=== PATIENT | female | born 1975 | race Hispanic/Latino ===

== ENCOUNTER 2016-08-26 23:07 | Emergency (ER) | payer OTHER ==
[~2016-08-26] VITALS: Ht 170.2 cm; Wt 104.3 kg
[~2016-08-26 23:07] MED LIST: AMBIEN12.5 MG PO; AMITRIPTYLINE H50 MG PO; AMITRIPTYLINE100 M2 PO; AMLODIPINE BESYL5 M1 PO; BYSTOLIC20 MG PO; LINACLOTIDE PO; LINZESS290 MCG PO; METHOTREXA25 MG/1 M2 SC; METHOTREXATE2.5 M1 PO; NEXIUM20 MG PO; OMEPRAZOLE20 M2 PO; OXYCODONE HCL10 M2 PO; OXYCODONE HCL30 MG PO; OXYCODONE HYDRO30 MG PO; POLYETHYLENE G255 GM PO; RASUVO SC; SAVELLA50 M1 PO; VOLTAREN100 GM TOP
--- NOTE | 2016-08-26 23:44 | ED HAND/WRIST INJURY COMPLAINT ---
History of Present Illness General Chief Complaint: General Adult Stated Complaint: HANDS AND JOINT PAIN/ LUMP ON VAGINA Source: patient, old records Exam Limitations: no limitations Vital Signs & Intake/Output Vital Signs & Intake/Output Vital Signs Date Time Temp Pulse Resp B/P Pulse O2 O2 Flow FiO2 Ox Delivery Rate 08/26 2317 98.3 98 18 178/105 97 Room Air ED Intake and Output 08/27 0000 08/26 1200 Intake Total Output Total Balance Patient 230 lb Weight Allergies Coded Allergies: NO KNOWN ALLERGIES (03/17/16) Reconcile Medications Amitriptyline HCl 100 MG TABLET 1 TAB PO QHS HEADACHES (Reported) Amlodipine Besylate 5 MG TABLET 1 TAB PO DAILY REYNAUDS (Reported) Diclofenac Sodium (Voltaren) 1 % GEL..GRAM. 1 GM TOP 4 TIMES/DAY JOINTS ( Reported) apply to affected area(s) Linaclotide (Linzess) 290 MCG CAPSULE 1 TAB PO DAILY CONSTIPATION (Reported) Methotrexate/Pf (Rasuvo 15 MG/0.3 Ml Autoinj) 15 MG/0.3 ML AUTO.INJCT 15 MG SC QTHURS RA (Reported) Milnacipran (Savella) 50 MG TABLET 1 TAB PO BID FIBROMYALGIA (Reported) Nebivolol Hydrochloride (Bystolic) 20 MG TAB 1 TAB PO DAILY BLOOD PRESSURE ( Reported) Omeprazole 20 MG CAPSULE.DR 1 CAP PO DAILY GI (Reported) Oxycodone HCl 10 MG TABLET 1 TAB PO 4XDAILY PAIN (Reported) Polyethylene Glycol 3350 17 GRAM/DOSE POWDER 17 GM PO DAILY GI (Reported) Zolpidem Tartrate (Ambien Cr) 12.5 MG TAB.MPHASE 1 TAB PO AT BEDTIME SLEEP ( Reported) Triage Note: RECEIVED 40 YO FEMALE WITH HX OF RA, C/O HANDS, JOINTS, ARMS AND BACK VERY PAINFUL X 3 DAYS. PT ALSO C/O LUMP ON VAGINAL AREA. SEEN MILLER HEAD ONE MONTH AGO, LUMP IS GETTING LARGER. Triage Nurses Notes Reviewed? yes Occurred: last week Duration: day(s): (3), constant Timing: recent history Injury Environment: home Severity: moderate Severity Numbers: 6 Pain/Injury Location: Bilateral: Hand. Method of Injury: unknown No Modifying Factors: none Associated Symptoms: swelling : No Patient currently breastfeeds: No HPI: 40-year-old female history of RA, fibromyalgia, raynauds presents emergency room complaining with 3 day history of bilateral upper extremity pain described as a soreness stiffness tightness intermittent swelling going on for the past 3 days. The patient denies any known specific injury or trauma. She is in pain management and takes oxycodone every 6 hours as needed her last dose roughly 4 hours ago she's been taking without improvement. Patient denies any rashes to her skin, she denies any lower extremity injury neck or back pain chest pain shortness of breath or abdominal pain. Patient is also complaining of a lump to her vaginal area which she's had for the past 1 month she states that is been getting larger. She states she was initially medical. 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 castro however states he cultures came back negative and the symptoms persist. She denies any vaginal bleeding or discharge otherwise. No rashes to her genitalia no history of similar episodes in the past Past History Travel History Traveled to [place] past 21 day No Medical History Any Pertinent Medical History? see below for history Neurological: NONE EENT: NONE Cardiovascular: hypertension Respiratory: NONE Gastrointestinal: NONE Hepatic: cholelithiasis Renal: NONE Musculoskeletal: fibromyalgia, rheumatoid arthritis Psychiatric: NONE Endocrine: NONE Blood Disorders: NONE Cancer(s): NONE MILLER HEAD/Reproductive: NONE Surgical History Surgical History: cholecystectomy Psychosocial History What is your primary language Belarusian Tobacco Use: Never used Family History Hx Contributory? No Review of Systems Review of Systems Constitutional: Reports: see HPI. All Other Systems: Reviewed and Negative Comments Review of systems: See HPI, All other systems negative. Constitutional, no chills no fever, no malaise HEENT: No visual changes no sore throat no congestion Cardiovascular: No chest pain , no palpitation Skin, no rashes, no change in skin resp: no dyspnea GI: No nausea no vomiting, no diarrhea, : No dysuria No hematuria, no frequency, no discharge Muscle skeletal: joint pain, joint swelling, no back pain, no neck pain, Neurologic: No numbness no headache Psych: No stress Heme/endocrine: No bruising no bleeding Immunology: No lymphadenopathy Physical Exam Physical Exam General Appearance: well developed/nourished, alert, awake Hand Left: normal inspection, normal range of motion Hand Right: normal inspection, normal range of motion Comments: Well-developed well-nourished person in no acute distress HEENT: Normal EENT exam; PERRL, EOMI, . HEAD is atraumatic. moist mucous membranes. Neck: Supple, normal range of motion Back: Nontender, Full range of motion Cardiovascular: Regular rate and rhythms no murmurs Respiratory: No respiratory distress. Patient speaking in full complete sentences. Breath sounds clear to auscultation bilaterally: NO W/R/R Abdomen: Soft, nontender nondistended Female : Normal external genitalia, Normal cervix, nontender. Noraml adnexa. No lesions/discharge or bleeding. Uterus normal in size. There is no rashes no abscess no induration or fluctuance Shoulder: Atraumatic/Stable. FROM . Elbow: Atraumatic/stable. FROM. No laxity Upper arm/Forearm: Atraumatic. Nontender. No edema, 5 out of 5 intelligence intern strength noted to bilateral upper extremities Hand/Wrist: Atraumatic/stable. Skin intact. FROM Pulses: Normal/equal radial pulses bilaterally. Brisk cap refill Lower Extremity: No edema, full range of motion of extremities, 5 out of 5 strength in bilateral lower extremities Neuro: Alert oriented x3, motor sensory normal,There were no obvious focal neurologic abnormalities. Skin: No appreciable rash on exposed skin, skin is warm and dry. Psych: Mood and affect is normal, memory and judgment is normal. Progress Differential Diagnosis: RA exacerbation fibromyalgia contusion fracture sprain, Bartholin's cyst, malignancy, herpes, candidiasis Plan of Care: Current Medications Sig/Suha Start time Last Medication Dose Stop Time Status Admin Morphine Sulfate 4 MG ONCE ONE 08/27 0100 UNVr (Morphine) 08/27 010 Hydromorphone HCl 1 MG ONCE ONE 08/26 2344 CAN (Dilaudid) 08/26 2346 pt medicated Dilaudid 1 mg IM I discussed with patient plan of care information is provided for plastics follow-up, advised return anytime sooner if any concerns prescription for lidocaine jelly provided they feel comfortable plan cleared for discharge ([facility]) Departure Departure Time of Disposition: 46 Disposition: HOME OR SELF CARE Condition: Stable Clinical Impression Primary Impression: Extremity pain Secondary Impressions: Fibromyalgia Referrals: ENRIQUE RICCI,DEO JOY MD,KALEB GALVIN MD,PETER (PCP/Family) Additional Instructions: 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 lidocaine jelly as discussed. this was sent to [facility] Continue taking your pain medication as prescribed. return at anytime sooner with any concerns Departure Forms: Customer Survey General Discharge Information Prescriptions: Current Visit Scripts Lidocaine HCl 5 ML TOP TID PRN PAIN #45 ML
[2016-08-27] MEDS ORDERED: LIDOCAINE HCL5 ML TOP (00:49)
[2016-08-27 01:07] VITALS: BP 155/74
== END 2016-08-27 01:11 ==
LOC: ERH 23:07
DX: M79.7 Fibromyalgia (principal); M79.601 Pain in right arm; M79.602 Pain in left arm
CPT/HCPCS: 96372

== ENCOUNTER 2017-10-25 23:20 | Emergency (ER) | payer OTHER ==
[~2017-10-25 23:20] MED LIST changes: +LIDOCAINE HCL5 ML TOP
[2017-10-26 01:14] LABS: ABSOLUTE BASOPHIL COUNT 0.1 /CUMM (0.0-0.2); ABSOLUTE EOSINOPHIL COUNT 0.5 /CUMM (0.0-0.7); ABSOLUTE GRANULOCYTE CT 5.6 /CUMM (1.4-6.5); ABSOLUTE MONOCYTE COUNT 0.7 /CUMM (0.10-0.60); BASOPHIL % 0.7 % (0.0-2.0); GRANULOCYTE % 56.6 % (42.2-75.2); HEMATOCRIT 37.9 % (37-47); MEAN CORPUSCULAR HGB 28.6 PG (27.0-31.0); MEAN CORPUSCULAR HGB CONC 32.9 G/DL (33.0-37.0); MEAN PLATELET VOLUME 9.7 FL (7.4-10.4); PLATELET COUNT 305 /CUMM (130-400); RBC DISTRIBUTION WIDTH 15.3 % (11.5-14.5); RED BLOOD CELL CT 4.35 /CUMM (4.20-5.40); WHITE BLOOD CELL COUNT 9.9 /CUMM (4.8-10.8)
--- NOTE | 2017-10-26 01:16 | ED GI/GU/ABDOMINAL COMPLAINT ---
History of Present Illness General Chief Complaint: Abdominal Pain/Flank Pain Stated Complaint: ABD PAIN X'S 1 1/2 WKS Source: patient, family, old records Exam Limitations: no limitations Vital Signs & Intake/Output Vital Signs & Intake/Output Vital Signs Date Time Temp Pulse Resp B/P B/P Pulse O2 O2 Flow FiO2 Mean Ox Delivery Rate 10/26 0010 97.7 94 18 177/98 97 Room Air Allergies Coded Allergies: No Known Allergies (10/26/17) Reconcile Medications Amitriptyline HCl 100 MG TABLET 1 TAB PO QHS HEADACHES (Reported) Amlodipine Besylate 5 MG TABLET 1 TAB PO DAILY REYNAUDS (Reported) Diclofenac Sodium (Voltaren) 1 % GEL..GRAM. 1 GM TOP 4 TIMES/DAY JOINTS ( Reported) apply to affected area(s) Lidocaine HCl 2 % JEL..ML. 5 ML TOP TID PRN PAIN Linaclotide (Linzess) 290 MCG CAPSULE 1 TAB PO DAILY CONSTIPATION (Reported) Methotrexate/Pf (Rasuvo 15 MG/0.3 Ml Autoinj) 15 MG/0.3 ML AUTO.INJCT 15 MG SC QTHURS RA (Reported) Milnacipran (Savella) 50 MG TABLET 1 TAB PO BID FIBROMYALGIA (Reported) Nebivolol Hydrochloride (Bystolic) 20 MG TAB 1 TAB PO DAILY BLOOD PRESSURE ( Reported) Omeprazole 20 MG CAPSULE.DR 1 CAP PO DAILY GI (Reported) Oxycodone HCl 10 MG TABLET 1 TAB PO 4XDAILY PAIN (Reported) Polyethylene Glycol 3350 17 GRAM/DOSE POWDER 17 GM PO DAILY GI (Reported) Zolpidem Tartrate (Ambien Cr) 12.5 MG TAB.MPHASE 1 TAB PO AT BEDTIME SLEEP ( Reported) Triage Note: TRIAGE: PATIENT TO ROOM 10 FOR TRIAGE, PATIENT REPORTING +STRAIN W/ URINATION AND BM W/ LOWER ABD PAIN "IN THE OVARIES" X 1WEEK. REPORTS WAS SEEN AT [facility] ON MONDAY AND DX W/ R OVARIAN CYST, TOLD TO F/U W/ PCP BUT COULDN'T GET APPT UNTIL 11/06/17. PATIENT REPORTS "I TAKE PAIN MEDS FOR FIBROMYALGIA AND RA AND EVEN THAT ISN'T HELPING." DENIES N/V/D. Triage Nurses Notes Reviewed? yes LMP (ages 10-50): unknown ? n Is pt currently ? No Onset: 2 weeks Duration: week(s):, constant, continues in ED Timing: recent history Quality/Severity: aching, sharpness, severe Location: right flank, right lower quadrant Radiation: back Activities at Onset: rest Prior Abdominal Problems: none Past Sexual History: Unobtainable at this time Modifying Factors: Worsens With: movement, palpation. Associated Symptoms: abdominal pain, dysuria, loss of appetite, nausea/vomiting HPI: 2 weeks prior to admission patient complains of constant right lower quadrant pain described as sharp severe radiating to her flank. She also complains of discomfort with voiding needing to strain. The pain is worse when lying on her right side palpation and movement. She was seen at [facility] and diagnosed with ovarian cyst and UTI prescribed Macrobid. She denies fever chills nausea vomiting diarrhea chest pain cough shortness breath headache rash bleeding. Past History Travel History Traveled to [place] past 21 day No Medical History Any Pertinent Medical History? see below for history Neurological: NONE EENT: NONE Cardiovascular: hypertension Respiratory: NONE Gastrointestinal: NONE Hepatic: cholelithiasis Renal: NONE Musculoskeletal: fibromyalgia, rheumatoid arthritis Psychiatric: NONE Endocrine: NONE Blood Disorders: NONE Cancer(s): NONE OCC MED PHYSICIAN/Reproductive: NONE Surgical History Surgical History: cholecystectomy Psychosocial History What is your primary language Portuguese Tobacco Use: Never used Family History Hx Contributory? No Review of Systems Review of Systems Constitutional: Reports: no symptoms. EENTM: Reports: no symptoms. Respiratory: Reports: no symptoms. Cardiovascular: Reports: no symptoms. GI: Reports: see HPI, abdominal pain. Genitourinary: Reports: see HPI, dysuria, hesitation, pain. Musculoskeletal: Reports: no symptoms. Skin: Reports: no symptoms. Neurological/Psychological: Reports: no symptoms. Hematologic/Endocrine: Reports: no symptoms. Immunologic/Allergic: Reports: no symptoms. All Other Systems: Reviewed and Negative Physical Exam Physical Exam General Appearance: well developed/nourished, alert, awake, anxious, moderate distress, obese Head: atraumatic, normal appearance Eyes: Bilateral: normal appearance, PERRL, EOMI, normal inspection. Ears, Nose, Throat, Mouth: hearing grossly normal, moist mucous membrane Neck: normal inspection, supple, full range of motion, normal alignment Respiratory: normal breath sounds, chest non-tender, no respiratory distress, quiet respiration, lungs clear Cardiovascular: regular rate/rhythm, normal peripheral pulses, norml femoral pulses equa Peripheral Pulses: 4+ carotid (R), 4+ carotid (L) Gastrointestinal: normal bowel sounds, soft, no organomegaly, tenderness (mild right lower quadrant) Back: normal inspection, normal range of motion, no vertebral tenderness Extremities: normal range of motion, no ligament instability Neurologic/Psych: no motor/sensory deficits, awake, alert, oriented x 3, normal mood/affect, wheel alignment mechanic II-XII nml as tested Skin: intact, normal color, warm/dry Core Measures ACS in differential dx? No Sepsis Present: No Sepsis Focused Exam Completed? No Progress Differential Diagnosis: appendicitis, biliary colic, bowel obstruction, diverticulitis, hernia, kidney stone, pancreatitis, UTI/pyelo Plan of Care: Orders Procedure Date/time Status URINE 10/26 49 Complete URINALYSIS 10/26 49 Complete LIPASE 10/26 49 Complete COMPREHENSIVE METABOLIC PANEL 10/26 49 Complete CBC WITHOUT DIFFERENTIAL 10/26 49 Complete Current Medications Sig/Suha Start time Last Medication Dose Stop Time Status Admin Ceftriaxone Sodium 1,000 MG ONCE ONE 10/26 414 AC (Rocephin) 10/27 415 Phenazopyridine HCl 200 MG ONCE ONE 10/26 414 AC (Pyridium) 10/27 415 Laboratory Tests 10/26/17 0105: Anion Gap 10, Estimated GFR > 60, BUN/Creatinine Ratio 14.3, Glucose 88, Calcium 9.4, Total Bilirubin 0.3, AST 29, ALT 39, Alkaline Phosphatase 70, Total Protein 7.6, Albumin 4.1, Globulin 3.5, Albumin/Globulin Ratio 1.2, Lipase 36, CBC w Diff NO MAN DIFF REQ, RBC 4.35, MCV 87.0, MCH 28.6, MCHC 32.9 L, RDW 15.3 H, MPV 9.7, Gran % 56.6, Lymphocytes % 30.4, Monocytes % 7.3, Eosinophils % 5.0, Basophils % 0.7, Absolute Granulocytes 5.6, Absolute Lymphocytes 3.0, Absolute Monocytes 0.7 H, Absolute Eosinophils 0.5, Absolute Basophils 0.1 10/26/17 0056: Urine Color STRAW, Urine Clarity HAZY H, Urine pH 6.5, Ur Specific [place] <= 1.005, Urine Protein NEG, Urine Ketones NEG, Urine Nitrite NEG, Urine Bilirubin NEG, Urine Urobilinogen 0.2, Ur Leukocyte Esterase NEG, Ur Microscopic SEDIMENT EXAMINED, Urine RBC 3-5, Urine WBC 3-5 H, Ur Epithelial Cells MOD H, Urine Bacteria FEW H, Urine Mucus FEW, Urine Hemoglobin TRACE-INTACT, Urine Glucose NEG, Urine Test NEGATIVE Diagnostic Imaging: Viewed by Me: CT Scan. Discussed w/RAD: CT Scan. Radiology Impression: No hydronephrosis. Nonspecific area of hypoattenuation in the right lower pole renal cortex. No adjacent inflammation. Pyelonephritis is not excluded. No renal calculi are seen. Normal appendix. Initial ED EKG: none Departure Departure Time of Disposition: 338 Disposition: HOME OR SELF CARE Condition: Stable Clinical Impression Primary Impression: Abdominal pain in female patient Secondary Impressions: Rheumatoid arthritis flare Referrals: Vijay RICCI,Fam Arango MD,Jameel (PCP/Family) Departure Forms: Customer Survey General Discharge Information Prescriptions: Current Visit Scripts Phenazopyridine HCl (Pyridium) 1 TAB PO TID #9 TAB Cephalexin (Keflex) 1 CAP PO TID #21 CAP Lidocaine (Lidoderm) 1 PAT TOP DAILY #30 PAT may wear up to 12 hours Ibuprofen 1 TAB PO TID PRN pain #50 TAB with food
--- NOTE | 2017-10-26 02:31 | CT SCAN REPORT ---
EXAMINATION: CT ABDOMEN AND PELVIS WITH CONTRAST CLINICAL INFORMATION: Right lower quadrant tenderness. Flank pain. COMPARISON: 03/17/2016 TECHNIQUE: Multidetector volumetric imaging was performed of the abdomen and pelvis following IV administration of 95 mL of Optiray 320 intravenous contrast. Sagittal and coronal reformatted images were obtained on the technologist's workstation. DLP: 1245 mGy-cm FINDINGS: LUNG BASES: Left basilar subsegmental atelectasis. The visualized cardiac structures are unremarkable. LIVER, GALLBLADDER, AND BILIARY TREE: The liver is normal in size, shape, and attenuation. No focal hepatic lesion or biliary ductal dilatation is present. The gallbladder is likely absent. PANCREAS: Unremarkable. SPLEEN: Unremarkable. ADRENAL GLANDS: Unremarkable. KIDNEYS AND URETERS: The kidneys are normal in size and shape. There is a region of hypoattenuation at the anterior lower pole cortex of the right kidney which measures 1.1 cm. This is a change from the previous CT. On the prior CT, there was a similar finding on the left kidney. No hydronephrosis, hydroureter, or calculi seen. No perinephric stranding. BLADDER: Unremarkable. GASTROINTESTINAL TRACT: The stomach is unremarkable. The small bowel is normal in caliber. There is no obstruction. No colonic wall thickening or inflammatory change. Normal appendix. No free air or free fluid. ABDOMINAL WALL: No significant hernia is appreciated. LYMPH NODES: Normal. VASCULAR: Unremarkable. PELVIC VISCERA: There is an IUD in place. No adnexal mass. OSSEOUS STRUCTURES: No acute or suspicious osseous abnormality. IMPRESSION: No hydronephrosis. Nonspecific area of hypoattenuation in the right lower pole renal cortex. No adjacent inflammation. Pyelonephritis is not excluded. No renal calculi are seen. Normal appendix.
[2017-10-26] MEDS ORDERED: PYRIDIUM200 M1 PO (04:15)
[2017-10-26] MEDS ORDERED: IBUPROFEN600 M1 PO (04:15)
[2017-10-26] MEDS ORDERED: LIDODERM1 EACH TOP (04:15)
[2017-10-26] MEDS ORDERED: KEFLEX500 M1 PO (04:15)
[2017-10-26 04:17] VITALS: BP 152/72
== END 2017-10-26 04:31 ==
LOC: ERH 23:20
PROVIDERS: Emergency Medicine
DX: M06.9 Rheumatoid arthritis, unspecified (principal); R10.31 Right lower quadrant pain
CPT/HCPCS: 74177; 81001; 81025; 96374; 96375; 96376; J0696; J1885; J2405; J2930